=== PATIENT | female | born 1970 | race Caucasian/White ===

== ENCOUNTER 2020-09-12 13:27 | Emergency (ER) | payer OTHER, BC ==
[2020-09-12] MEDS ORDERED: Ibuprofen 200 MG TAB ONE (14:11)
== END 2020-09-12 14:13 | disposition home or self-care (01) ==
LOC: CSHERS 13:27
DX: S16.1XXA Strain of muscle, fascia and tendon at neck level, initial encounter (principal); E11.9 Type 2 diabetes mellitus without complications; V43.52XA Car driver injured in collision with other type car in traffic accident, initial encounter
CPT/HCPCS: 99283